=== PATIENT | female | born 1985 | race Caucasian/White ===

== ENCOUNTER 2017-08-25 22:59 | Emergency (ER) | payer SELFPAY ==
[2017-08-25 22:59] VITALS: BMI 28.5
[2017-08-25 23:49] VITALS: TEMP 97.8
[2017-08-26 00:53] VITALS: BP 98/61; PULSE 68; RESP 18
--- NOTE | 2017-08-26 00:54 | C.PDOC ---
History Of Present Illness 31 year old female presents to the ED for evaluation of flu like symptoms x2-3 days. Patient complains of body aches, headaches, fevers, cough, and sore throat. No vomiting or diarrhea. No recent travel. Patient took ibuprofen, last dose 21:00. No SOB, chest pain, sick contact or other acute complaints at this time. Time Seen by Provider: 08/25/17 23:52 Chief Complaint (Nursing): Flu-like Symptoms History Per: Patient History/Exam Limitations: no limitations Onset/Duration Of Symptoms: Days Current Symptoms Are (Timing): Still Present Location Of Pain: Throat, Diffuse Myalgias Associated Symptoms: Fever, Sore Throat, Cough, Myalgias. denies: Vomiting, Diarrhea Recent travel outside of the [place]: No Past Medical History Reviewed: Historical Data, Nursing Documentation, Vital Signs Vital Signs: Last Vital Signs Temp 97.8 F 08/25/17 23:47 Pulse 68 08/26/17 00:53 Resp 18 08/26/17 00:53 BP 98/61 L 08/26/17 00:53 Pulse Ox 99 08/26/17 03:29 - [facility] Procedures EXTRACTION OF POC, LOW CERVICAL, OPEN APPROACH (08/13/16) MONITORING OF POC, CARDIAC RATE, GROOVER RUNNER APPROACH (08/13/16) RESECTION OF BILATERAL FALLOPIAN TUBES, OPEN APPROACH (08/13/16) Family History: States: Unknown Family Hx - Social History Hx Alcohol Use: No Hx Substance Use: No - Immunization History Hx Tetanus Toxoid Vaccination: Yes Hx Influenza Vaccination: Yes Hx Pneumococcal Vaccination: No Review Of Systems Except As Marked, All Systems Reviewed And Found Negative. Constitutional: Positive for: Fever. Negative for: Chills ENT: Positive for: Throat Pain. Negative for: Ear Pain Respiratory: Positive for: Cough. Negative for: Shortness of Breath Gastrointestinal: Negative for: Nausea, Vomiting, Abdominal Pain, Diarrhea Musculoskeletal: Positive for: Other (myalgias ) Skin: Negative for: Rash Neurological: Negative for: Headache Physical Exam - Physical Exam Appears: Well, No Acute Distress Skin: Normal Color, Warm, Dry Head: Atraumatic, Normacephalic Eye(s): bilateral: Normal Inspection, PERRL, EOMI Nose: Normal Oral Mucosa: Moist Tongue: Normal Appearing Lips: Normal Appearing Throat: Normal Neck: Normal, Normal ROM, Supple Cardiovascular: Rhythm Regular Respiratory: Normal Breath Sounds, No Rhonchi, No Wheezing Gastrointestinal/Abdominal: Soft, No Tenderness Back: Normal Inspection Extremity: Normal ROM, No Deformity Neurological/Psych: Oriented x3 ED Course And Treatment O2 Sat by Pulse Oximetry: 99 Pulse Ox Interpretation: Normal Medical Decision Making Medical Decision Making: Impression: influenza, viral illness Pt in no resp distress, VSS. Appears well. Pt will follow up with PMD or in clinic Return precautions discussed. Pt understand and agreed with plan of treatment Will discharge home with Tamiflu. Disposition Counseled Patient/Family Regarding: Diagnosis, Need For Followup, Rx Given - Disposition Disposition: HOME/ ROUTINE Disposition Time: 00:52 Condition: STABLE Additional Instructions: Please follow up with PMD Alternate tylenol and motrin for fever Encourage fluids Return to ER if decrease Urine output, difficulty breathing or worse Prescriptions: Cetirizine HCl [Zyrtec] 10 mg PO DAILY #20 capsule Ibuprofen [Motrin] 600 mg PO Q6H #20 tab Oseltamivir [Tamiflu] 75 mg PO BID #10 cap Instructions: Viral Upper Respiratory Infection, Adult (DC) Forms: [employer] (Ecuadorean), Work Excuse Print Language: [place] - Clinical Impression Clinical Impression: Influenza-like illness - Scribe Statement The provider has reviewed the documentation as recorded by the Scribe The provider has reviewed the documentation as recorded by the Scribe (Pawan Odonnell)
[2017-08-26 00:55] VITALS: O2SAT 99
== END 2017-08-26 00:57 | disposition home or self-care (01) ==
LOC: C.ER 22:59
DX: J11.1 Influenza due to unidentified influenza virus with other respiratory manifestations (principal)